=== PATIENT | female | born 1995 | race Caucasian/White ===

== ENCOUNTER 2017-08-06 01:54 | Emergency (ER) | payer SELFPAY ==
[2017-08-06 02:40] LABS: ABS Basophils 0.1 10^3/ul (0-0.2); ABS Eosinophils 0.1 10^3/ul (0-0.6); ABS Lymphocytes 2.2 10^3/ul (1.0-4.8); ABS Monocytes 0.6 10^3/ul (0-0.8); ABS Neutrophils 6.5 10^3/ul (1.5-7.7); ABS Nucleated RBC 0 10^3/ul; Eosinophil % 1.5 % (0-6); Hematocrit 40 % (35-47); Hemoglobin 13.6 g/dl (12.0-16.0); Lymphocyte % 23.4 % (25-47); Mean Corpuscular HGB Conc 34 g/dl (31-36); Mean Corpuscular Hemoglobin 31 pg (27-31); Mean Corpuscular Volume 92 fL (80-97); Mean Platelet Volume 6.8 um3 (7.4-10.4); Nucleated Red Blood Cells % 0.1; Platelet Count 262 10^3/ul (150-450); Red Blood Count 4.36 10^6/ul (4.0-5.4); Red Cell Distribution Width 14 % (10.5-15); White Blood Count 9.5 10^3/ul (3.5-10.8)
[2017-08-06 02:55] LABS: EGFR Non-African American 70.1 (>60)
[2017-08-06 06:17] VITALS: BP 111/59
--- NOTE | 2017-08-06 06:21 | ED ---
Laureen Zamarripa Rebecca, scribed for Dawson Morales MD on 08/06/17 at 0209 . Psychiatric Complaint - HPI Summary HPI Summary: Pt is a 22 y/o F BIBA accompanied by police who presents to ED with depression s /p harm attempt via dextromethorphan consumption. Pt believes it was a cough/ cold remedy which she had used earlier this year to treat the flu. Taken at about 0030 and believes she took about 2-3 doses. At this time, she is no longer having SIs. Sx aggravated by recent stress of upcoming finals. C/o nausea and vomited 2x s/p ingestion. Denies drowsiness, CP, SOB. EMS called by her friends. - History Of Current Complaint Chief Complaint: EDMentalHealth Time Seen by Provider: 08/06/17 01:58 Hx Obtained From: Patient Onset/Duration: Resolved Severity Currently: None Character: Depressed Aggravating Factor(s): Recent Stress Alleviating Factor(s): Nothing Has Suicidal: Reports: Demonstrates Gesture - COFOUNDER Ingestion History: Type/Name Of Drug - dextromethorphan, Amount Ingested - ~2-3 doses, Approximate Time Of Ingestion - 0030 - Allergies/Home Medications Allergies/Adverse Reactions: Allergies Allergy/AdvReac Type Severity Reaction Status Date / Time clindamycin Allergy Mild Rash Verified 08/06/17 02:03 Home Medications: Home Medications NK [No Home Medications Reported] 08/06/17 [History Confirmed 08/06/17] PMH/Surg Hx/FS Hx/Imm Hx Previously Healthy: Yes Endocrine/Hematology History: Denies: Hx Diabetes Cardiovascular History: Denies: Hx Hypertension Infectious Disease History: No Infectious Disease History: Denies: Traveled Outside the [place] in Last 30 Days - Family History Known Family History: Negative: Hypertension, Diabetes - Social History Occupation: Student Alcohol Use: None Substance Use Type: Reports: None Smoking Status (MU): Never Smoked Tobacco Review of Systems Positive: Other - NEGATIVE: Drowsiness Negative: Chest Pain Negative: Shortness Of Breath Positive: Vomiting - 2x, Nausea Positive: Depressed, Other - Harm attempt; Denies SIs at this time All Other Systems Reviewed And Are Negative: Yes Physical Exam - Summary Physical Exam Summary: Appearance: Well appearing, no pain distress Skin: warm, dry, reflects adequate perfusion Head/face: normal Eyes: EOMI, KENDALL, no nystagmus ENT: normal Neck: supple, non-tender Respiratory: CTA, breath sounds present Cardiovascular: RRR, pulses symmetrical Musculoskeletal: normal, strength/ROM intact Neuro: normal, sensory motor intact, A&Ox3 Psych: Normal affect, normal insight. Triage Information Reviewed: Yes Vital Signs On Initial Exam: Initial Vitals Temp Pulse Resp BP Pulse Ox 99.4 F 78 15 117/84 98 08/06/17 01:58 08/06/17 01:58 08/06/17 01:58 08/06/17 01:58 08/06/17 01:58 Vital Signs Reviewed: Yes Diagnostics - Vital Signs Vital Signs Temp Pulse Resp BP Pulse Ox 08/06/17 01:58 99.4 F 78 15 117/84 98 - Laboratory Lab Results: Lab Results 08/06/17 08/06/17 Range/Units 02:20 02:20 WBC 9.5 (3.5-10.8) 10^3/ul RBC 4.36 (4.0-5.4) 10^6/ul Hgb 13.6 (12.0-16.0) g/dl Hct 40 (35-47) % MCV 92 (80-97) fL MCH 31 (27-31) pg MCHC 34 (31-36) g/dl RDW 14 (10.5-15) % Plt Count 262 (150-450) 10^3/ul MPV 6.8 L (7.4-10.4) um3 Neut % (Auto) 68.2 (38-83) % Lymph % (Auto) 23.4 L (25-47) % Motley % (Auto) 6.1 (0-7) % Eos % (Auto) 1.5 (0-6) % Baso % (Auto) 0.8 (0-2) % Absolute Neuts (auto) 6.5 (1.5-7.7) 10^3/ul Absolute Lymphs (auto) 2.2 (1.0-4.8) 10^3/ul Absolute Monos (auto) 0.6 (0-0.8) 10^3/ul Absolute Eos (auto) 0.1 (0-0.6) 10^3/ul Absolute Basos (auto) 0.1 (0-0.2) 10^3/ul Absolute Nucleated RBC 0 10^3/ul Nucleated RBC % 0.1 Sodium 137 L (139-145) mmol/L Potassium 4.1 (3.5-5.0) mmol/L Chloride 104 (101-111) mmol/L Carbon Dioxide 25 (22-32) mmol/L Anion Gap 8 (2-11) mmol/L BUN 15 (6-24) mg/dL Creatinine 0.99 H (0.51-0.95) mg/dL Est GFR ( Amer) 90.2 (>60) Est GFR (Non-Af Amer) 70.1 (>60) BUN/Creatinine Ratio 15.2 (8-20) Glucose 105 H (70-100) mg/dL Calcium 9.7 (8.6-10.3) mg/dL Total Bilirubin 0.50 (0.2-1.0) mg/dL AST 11 L (13-39) U/L ALT 10 (7-52) U/L Alkaline Phosphatase 40 (34-104) U/L Total Protein 7.6 (6.4-8.9) g/dL Albumin 4.3 (3.2-5.2) g/dL Globulin 3.3 (2-4) g/dL Albumin/Globulin Ratio 1.3 (1-3) TSH 3.40 (0.34-5.60) mcIU/mL Beta HCG, Quant < 0.60 mIU/mL Salicylates < 2.50 (<30) mg/dL Acetaminophen < 15 mcg/mL Serum Alcohol < 10 (<10) mg/dL Result Diagrams: 08/06/17 02:20 08/06/17 02:20 Lab Statement: Any lab studies that have been ordered have been reviewed, and results considered in the medical decision making process. Course/Dx - Course Course Of Treatment: Patient with ingestion of a nontoxic amount of dissection for then. She has not developed any symptoms, likely as she vomited after ingestion. She since has expressed regret for this. She is emotional as her father is recently been diagnosed with terminal condition. She underwent full and complete crisis evaluation here was cleared for discharge by the psychiatrist. She was arranged follow-up with [facility]. - Differential Dx/Clinical Impression Differential Diagnosis/HQI/PQRI: Positive: Anxiety, Depression, Suicidal Ideation, Suicidal Gesture Provider Diagnosis: Adjustment disorder with emotional disturbance, Dextromethorphan overdose Discharge - Sign-Out/Discharge Documenting (check all that apply): Discharge/Admit/Transfer - Discharge - Discharge Plan Condition: Stable Disposition: HOME Referrals: [facility] - [facility] [Primary Care Provider] - - Billing Disposition and Condition Condition: STABLE Disposition: HOME The documentation as recorded by the Laureen bundy Rebecca accurately reflects the service I personally performed and the decisions made by , Dawson Morales MD.
== END 2017-08-06 06:44 | disposition home or self-care (01) ==
LOC: ED 01:54
DX: F43.29 Adjustment disorder with other symptoms (principal); Y92.9 Unspecified place or not applicable; T48.3X2A Poisoning by antitussives, intentional self-harm, initial encounter
CPT/HCPCS: 36415; 80053; 80320; 80329; 84443; 84702; 85025; 99285; G0480